=== PATIENT | female | born 1960 | race African-American/Black ===

== ENCOUNTER → 2019-05-18 | Emergency (ER) | payer MEDICARE, BC ==
--- NOTE | 2019-05-19 15:05 | CT ---
CT ABDOMEN WITH CONTRAST CT PELVIS WITH CONTRAST: DATE: 05/18/2019 Time: 11:02 PM HISTORY: 58-year-old female with abdominal cramping pain and diarrhea. All of [facility] was down at the time of the scan, including synapse. Dr. Donnie crouchot e a preliminary report stating "distended stomach, nondilated fluid-filled small bowel. Questionable enteritis. Colon decompressed" COMPARISON: None available TECHNIQUE: IV injection of iodinated contrast media: administered. Oral contrast media:Not administered FINDINGS: The stomach is distended, filled with large amount of liquid ingested material. This includes the reg ion of the gastric antrum or pylorus where there is mural thickening and mural enhancement. There is an air-filled moderately large duodenal diverticulum protruding anteriorly from the region o f the junction between the first and second stages of the duodenum. Air-fluid level in second stage of duodenum. After the third stage, the duodenum no jejunal junction takes a sharp 180 degree turn to the right, where the rest of the proximal jejunum is located, rather than the usual left side. Small bowel loops are diffusely fluid-filled, but there is no small bowel dilation. There is some liq uid stool in the ascending colon. The transverse, descending, and rectosigmoid colon are collapsed. No signs of diverticulitis. No pneumoperitoneum or ascites. Normal appendix, bilateral kidneys, liver , adrenals, pancreas, and spleen. No abdominal aortic aneurysm. Lung bases are clear. High-grade degenerative disc disease at L5-S1. IMPRESSION: 1) distended stomach. 2) mural thickening and mural enhancement at gastroduodenal junction raising the possibility of infla mmation in this location. 3) fluid throughout small intestine, perhaps representing gastroenteritis. 4) unusual finding of proximal jejunum located in the right upper quadrant rather than left upper kalani drant. This is currently not causing a small bowel obstruction.
[2019-05-19 16:54] LABS: Anion Gap 16 mmol/L (10-20); BUN (Urea Nitrogen) 29 mg/dL (9.8-20.1); Calc. Creatinine Clearance 0 mL/min (70-130); Calcium 9.2 mg/dL (7.8-10.44); Carbon Dioxide 27 mmol/L (22-29); Chloride 105 mmol/L (98-107); Estimated GFR-MDRD 49; Glucose 89 mg/dL (70-105); Potassium 3.6 mmol/L (3.5-5.1); Sodium 144 mmol/L (136-145)
[2019-05-19 16:55] LABS: ALT (SGPT) 29 U/L (8-55); AST (SGOT) 26 U/L (5-34); Albumin 4.1 g/dL (3.5-5.0); Alkaline Phosphatase 122 U/L (40-150); Bilirubin, Total 0.3 mg/dL (0.2-1.2); Globulin 3.6 g/dL (2.4-3.5); Protein, Total 7.7 g/dL (6.0-8.3)
[2019-05-19 17:28] LABS: Hemoglobin 12.6 g/dL (12.0-16.0); Red Blood Cell (RBC) Count 4.63 mill/uL (4.20-5.40); White Blood Cell (WBC) Count 5.2 thou/uL (4.8-10.8)
[2019-05-19 17:29] LABS: #Basophils 0.1 thou/uL (0.0-0.2); #Lymphocytes 1.6 thou/uL (1.20-3.40); #Monocytes 0.6 thou/uL (0.11-0.59); %Basophils 1.7 % (0.0-1.0); %Eosinophils 0.7 % (0.0-10.0); %Lymphocytes 29.8 % (21.0-51.0); %Monocytes 10.9 % (0.0-10.0); %Neutrophils 56.8 % (42.0-75.0); Mean Corpuscular Hemoglobin 27.1 pg (27.0-31.0); Mean Corpuscular Volume 84.8 fL (78.0-98.0); Mean Platelet Volume 9.5 fL (7.4-10.4); Platelet Count 173 thou/uL (130-400); RBC Distribution Width 12.8 % (11.5-14.5)
== END ==
LOC: EDBD → ERS 20:48 → EDUNIT# 20:48
DX: K52.9 Noninfective gastroenteritis and colitis, unspecified (principal); R11.2 Nausea with vomiting, unspecified; E11.9 Type 2 diabetes mellitus without complications; I10 Essential (primary) hypertension
CPT/HCPCS: 74177; 80053; 85025

== ENCOUNTER 2019-06-16 11:23 | Day surgery (SDC) | payer BC ==
[2019-06-15 16:01] VITALS: BMI 34.7
[~2019-06-16 11:23] MED LIST: EPINEPHrine 0.3 MG, Dextrose 50% 3 ML in Ophthalmic Irrigation Solution 500 ML IVP SCH
[2019-06-16] MEDS ORDERED: Cyclopentolate 1% Opth Drop 2 ML BOT ONE (11:36)
[2019-06-16] MEDS ORDERED: Phenylephrine 2.5% Ophth Soln 5 ML BOT ONE (11:38)
[2019-06-16] MEDS ORDERED: PROPOFOL 20 ML ONE (12:19)
[2019-06-16] MEDS ORDERED: Fentanyl 100 MCG/2 ML VIAL ONE (12:19)
[2019-06-16] MEDS ORDERED: Midazolam HCl 2 mg/2 ml Vial ONE (12:19)
--- NOTE | 2019-06-16 14:28 | OP ---
DATE OF PROCEDURE: 06/16/2019 PREOPERATIVE DIAGNOSES: Retinal detachment and vitreous hemorrhage, left eye. POSTOPERATIVE DIAGNOSES: Retinal detachment and vitreous hemorrhage, left eye. PROCEDURE PERFORMED: Pars plana vitrectomy, retinal detachment repair, left eye. ANESTHESIA: Local with monitored anesthesia care. PROCEDURE IN DETAIL: The patient was identified in the preoperative holding area. Appropriate informed consent for the planned surgical procedure on the left eye had been obtained. The patient was transported to the operative suite. Appropriate cardiopulmonary monitoring was established. Local anesthesia was obtained using retrobulbar modified Van Lint lid block using 50:50 mixture of 4% lidocaine, 0.75% bupivacaine. The patient was prepped and draped in usual sterile manner for ophthalmic surgery on the left eye. Lid speculum was placed in the left eye. A 25-gauge trocar was placed in the conjunctiva and sclera superotemporally, inferotemporally, and supranasally. Infusion line was placed inferotemporally. Light pipe and vitreous cutter were inserted to the eye. Core vitrectomy was performed. The areas of tractional elevation were identified in the periphery were peeled from the macular allowing release of tractional detachment. Panretinal photocoagulation was placed on non-macular areas of the retina. No further holes, breaks, or tears were identified. Hemorrhage was drained from the eye. Trocars were removed. The eye was noted to retain pressure well. Retrobulbar Kenalog and subconjunctival Ancef were placed. Antibiotic ointment was placed and the eye was patched and shielded. The patient was taken to the postoperative recovery unit in good condition, having suffered no immediate perioperative complications. The patient was instructed to keep patch shield on. Avoid lifting or bending. Followup appointment with Dr. Lutz. Job ID: [id number]
== END 2019-06-16 15:05 | disposition home or self-care (01) ==
LOC: SDC 11:23
PROVIDERS: ATTEND Ophthalmology Retina Specialist
PROC: 08T53ZZ Resection of Left Vitreous, Percutaneous Approach (ICD-10-PCS; principal; 2019-06-16)
PROC: 085F3ZZ Destruction of Left Retina, Percutaneous Approach (ICD-10-PCS; principal; 2019-06-16)
DX: H33.42 Traction detachment of retina, left eye (principal); H43.12 Vitreous hemorrhage, left eye; E11.9 Type 2 diabetes mellitus without complications; Z79.4 Long term (current) use of insulin; Z79.899 Other long term (current) drug therapy
CPT/HCPCS: 36416; J0171; J2250; J2704; J3010